=== PATIENT | male | born 1945 | race Caucasian/White ===

== ENCOUNTER 2019-04-17 22:00 | Emergency (ER) | payer MEDICARE ==
[~2019-04-17] VITALS: Ht 190.5 cm; Wt 90.9 kg
[~2019-04-17 22:00] MED LIST: AMBIEN10 MG PO; CLARITIN 10 MG10 MG PO; COLACE100 MG PO; FLUTICASONE PRO16 GM NASAL; GLUCOPHAGE500 MG PO; LISINOPRIL2.5 MG PO; NEURONTIN 300300 MG PO; OXYBUTYNIN CHLOR5 MG PO; PRAVACHOL40 MG PO; PRILOSEC20 MG PO; SINEMET 25-1001 EACH PO; ULTRAM50 MG PO
[2019-04-17 22:04] VITALS: Ht 190.5 cm; Wt 90.9 kg
[2019-04-17] MEDS ORDERED: AMANTADINE100 M1 PO (22:07)
[2019-04-17] MEDS ORDERED: CELEXA40 MG PO (22:07)
[2019-04-17] MEDS ORDERED: XALATAN 0.0052.5 ML EACH EYE (22:08)
[2019-04-17] MEDS ORDERED: NORITATE60 GM TP (22:08)
[2019-04-18 00:30] LABS: BASOPHILS 0.8 % (0-2); EOSINOPHILS 2.3 % (0-7); HEMATOCRIT 43.6 % (42.0-54.0); HEMOGLOBIN 15.3 g/dL (13.5-17.5); IMMATURE GRANULOCYTES 0.2 % (0-5); MCH 32.8 pg (26.0-34.0); MCHC 35.1 g/dL (31.0-37.0); MCV 93.4 fL (80.0-100.0); MEAN PLATELET VOLUME 9.6 fL (7.4-10.4); MONOCYTES 10.6 % (2-11); NEUTROPHILS 54.1 % (40-80); PLATELET COUNT 155 10x3/uL (130-400); RBC 4.67 10x6/uL (4.20-6.10); RDW 14.2 % (11.5-14.5); WBC 5.2 10x3/uL (4.8-10.8)
[2019-04-18 00:32] LABS: ALBUMIN 3.3 g/dL (3.4-5.0); ALKALINE PHOSPHATASE 70 U/L (46-116); ALT (SGPT) 4 U/L (10-68); BILIRUBIN - TOTAL 0.45 mg/dL (0.2-1.3); CALC OSMOLALITY 283 mosm/kg (275-300); CALCIUM 8.4 mg/dL (8.5-10.1); CARBON DIOXIDE 26.8 mmol/L (21.0-32.0); CHLORIDE - SERUM 106 mmol/L (98-107); CREATININE - SERUM 0.8 mg/dL (0.6-1.3); GLUCOSE 113 mg/dL (74-106); POTASSIUM - SERUM 3.9 mmol/L (3.5-5.1); PROTEIN - SERUM 6.8 g/dL (6.4-8.2); SODIUM 140 mmol/L (136-145); UREA NITROGEN 23 mg/dL (7-18); eGFR NON AFRICAN AMERICAN > 90 mL/min (90-120)
[2019-04-18] MEDS ORDERED: LOTREL 5/10 MG1 CAP PO ×2 (01:42→01:46)
[2019-04-18 02:15] VITALS: BP 119/82
== END 2019-04-18 02:15 | disposition home or self-care (01) ==
LOC: D.ER 22:00
PROVIDERS: Emergency Medicine
DX: I10 Essential (primary) hypertension (principal); G20 Parkinson's disease; E11.9 Type 2 diabetes mellitus without complications; I25.10 Atherosclerotic heart disease of native coronary artery without angina pectoris

== ENCOUNTER 2019-12-14 16:13 | Inpatient (IN) | payer MEDICARE ==
[~2019-12-14 16:13] MED LIST changes: +AMANTADINE100 M1 PO; +CELEXA40 MG PO; +LOTREL 5/10 MG1 CAP PO; +NORITATE60 GM TP; +SINEMET 25-1001 EAC1 PO; -SINEMET 25-1001 EACH PO; +XALATAN 0.0052.5 ML EACH EYE
[2019-12-14] MEDS ORDERED: LISINOPRIL20 MG (17:20)
[2019-12-14] MEDS ORDERED: RYTARY ER 48.71 EACH (17:27)
[2019-12-14] MEDS ORDERED: SENNA LAXATIVE8.6 MG (17:28)
[2019-12-14] MEDS ORDERED: SEROQUEL50 MG (17:28)
[2019-12-14] MEDS ORDERED: XARELTO10 MG (17:29)
[2019-12-14] MEDS ORDERED: MIRALAX17 GM (17:30)
[2019-12-14] MEDS ORDERED: IPRAT-ALBUT 0.5-3 ML (17:39)
--- NOTE | 2019-12-14 18:19 | NUR ---
PATIENT ADMITTED FROM [facility] FOR INCREASED CONFUSION, REFUSING MEDICATIONS, HALLUCINATIONS, AND AGRESSION WITH THE STAFF. CODE STATUS: FULL CODE. CODE WORD: 9874. IS IN AGREEMENT WITH ADMISSION. PT HAS ABNORMAL MOVEMENTS NOTED TO BILATERAL LEGS AND ARMS DUE TO PARKINSONS DISEASE. PT IS ALERT TO PLACE AND SELF. DISORIENTED TO TIME. BILATERAL SKIN TEARS NOTED TO ARMS AND LEGS. INCISION NOTED TO LEFT HIP WITH NO DRAINAGE AND PINK. PT DID NOT C/O OF PAIN. PT TRANSFERRED FROM W/C TO [facility] CHAIR 2X ASSIST. WEIGHT AND VITAL SIGNS OBTAINED. INFORMATION FROM FAMILY AND NURSING FACILITY VIA PHONE. CHAIR ALARM IN PLACE AND ACTIVE. ADMITTED TO ROOM 1123.
[2019-12-14 20:00] VITALS: BP 119/70
[2019-12-14] MEDS ORDERED: XALATAN 0.0052.5 ML EACH EYE (20:00)
[2019-12-14 23:18] LABS: BILIRUBIN NEGATIVE (NEGATIVE); GLUCOSE NEGATIVE (NEGATIVE); KETONE LARGE mg/dL (NEGATIVE); NITRITE NEGATIVE (NEGATIVE); SPECIFIC GRAVITY 1.015 (1.005-1.020); UROBILINOGEN 8 mg/dL (NORMAL)
[2019-12-14 23:58] VITALS: BP 119/70; BMI 23.8
[2019-12-15 06:09] LABS: ALBUMIN 2.6 g/dL (3.4-5.0); ALKALINE PHOSPHATASE 109 U/L (30-120); ALT (SGPT) 8 U/L (10-68); BILIRUBIN - TOTAL 0.98 mg/dL (0.2-1.3); CALC OSMOLALITY 288 mosm/kg (275-300); CALCIUM 8.6 mg/dL (8.5-10.1); CARBON DIOXIDE 26.2 mmol/L (21.0-32.0); CHLORIDE - SERUM 106 mmol/L (98-107); CHOL - HDL RATIO 2.2 ratio (2.3-4.9); CHOLESTEROL, TOTAL 71 mg/dL (0-200); CREATININE - SERUM 0.9 mg/dL (0.6-1.3); GLUCOSE 93 mg/dL (74-106); HDL CHOLESTEROL 32 mg/dL (32-96); LDL CHOLESTEROL 27 mg/dL (0-100); LDL-HDL RATIO 0.8 ratio (1.5-3.5); POTASSIUM - SERUM 4.2 mmol/L (3.5-5.1); PROTEIN - SERUM 6.5 g/dL (6.4-8.2); SODIUM 142 mmol/L (136-145); THYROID STIMULATING HORMONE 2.68 uIU/mL (0.36-3.74); TRIGLYCERIDE 64 mg/dL (30-200); UREA NITROGEN 28 mg/dL (7-18); eGFR NON AFRICAN AMERICAN 88 mL/min (90-120)
--- NOTE | 2019-12-15 08:26 | NUR ---
PATIENT SITTING IN [facility] CHAIR AWAITING BREAKFAST AT THIS TIME. PT IS ALERT TO SELF AND CONFUSION NOTED. PREVIOUS SHIFT REPORTED BEHAVIORS YELLING OUR FOR DANYEL. PT IS CALM AT THIS TIME. COMPLIANT WITH ASSESSMENT AND VITAL SIGNS. CHAIR ALARM IN PLACE AND ACTIVE. WILL CONT PLAN OF CARE.
[2019-12-15 08:38] VITALS: Wt 80.5 kg
[2019-12-15 09:45] LABS: BASOPHILS 0.2 % (0-2); HEMATOCRIT 40.5 % (42.0-54.0); HEMOGLOBIN 13.1 g/dL (13.5-17.5); IMMATURE GRANULOCYTES 0.6 % (0-5); LYMPHOCYTES 19.2 % (15-50); MCH 31.6 pg (26.0-34.0); MCHC 32.3 g/dL (31.0-37.0); MCV 97.6 fL (80.0-100.0); MEAN PLATELET VOLUME 9.4 fL (7.4-10.4); MONOCYTES 12.2 % (2-11); NEUTROPHILS 66.8 % (40-80); PLATELET COUNT 456 10x3/uL (130-400); RBC 4.15 10x6/uL (4.20-6.10); RDW 14.2 % (11.5-14.5); WBC 5.2 10x3/uL (4.8-10.8)
[2019-12-15 10:46] VITALS: BP 144/75
--- NOTE | 2019-12-15 16:28 | NUR ---
patient c/o of pain all over. Tramadol 50 mg po administered per order. will reasses for effectiveness.
--- NOTE | 2019-12-15 20:46 | NUR ---
PATIENT WAS OBSERVED IN DAYROOM, SITTING CALMLY HOWEVER PATIENT IS CONFUSED. COMPLIANT WITH MEDS, PT. IS PLEASANT. WILL FOLLOW POC
[2019-12-15 20:48] VITALS: BP 105/56
--- NOTE | 2019-12-16 09:03 | NUR ---
RECEIVED IN HALLWAY OUTSIDE OF NURSES STATION. CALM AND COOPERATIVE WITH CARE AND ASSESSMENT. NO BEHAVIORS. TAKING MEDS. REDIRECT AND REORIENT NEEDED. EATING BREAKFAST AT THIS TIME. CONTINUE PLANF OF CARE.
[2019-12-16 10:30] VITALS: BP 140/70
--- NOTE | 2019-12-16 14:15 | NUR ---
PRN EFFECTIVE AT THIS TIME. WILL CONT TO MONITOR. CHAIR ALARM IN PLACE AND ACTIVE.
--- NOTE | 2019-12-16 15:15 | NUR ---
PT YELLING OUT, ATTEMPTING TO PULL THE CABINET OVER, THREATING STAFF AND ACCUSING PEERS. GEODON [address] ZULUAGA ORDER. WILL REASSES FOR EFFECTIVENESS Q 1 HOUR.
--- NOTE | 2019-12-16 16:40 | PSY ---
PATIENT NAME:RIMA LANIER MEDICAL RECORD: [id number] : 47 LOCATION:[facility] ADMISSION DATE: 12/14/19 ACCOUNT: [id number] PSYCHIATRIC EVALUATION DATE OF EVALUATION: 12/15/19 DATE OF SERVICE: 12/15/2019 IDENTIFYING DATA: The patient is a 74-year-old male that was referred to us by a retirement Facility in [place], [place], after the patient had hip surgery for rehabilitation. CHIEF COMPLAINT: Hallucinating, yelling at staff and refusing medication. HISTORY OF PRESENT ILLNESS: The patient was reportedly to have an increase in hallucinating, agitation, irritability and noncompliance with care. The patient was reported to have had hip surgery on 12/03/2019 following the hip surgery. He then went to the retirement facility for physical therapy. The patient has a history of Parkinson's. The patient lived at home prior to his fall. It was reported that patient was hollering from his room and appeared to be hallucinating. The patient was transferred by ambulance as a direct admission to [facility]. PAST MEDICAL HISTORY: The patient has a history of type 2 diabetes, diverticulosis, hypertension, hyperlipidemia, Parkinson's disease. PAST PSYCHIATRIC HISTORY: The patient states he has had some depression. FAMILY HISTORY: The patient is a poor historian, unknown. ALLERGIES: HYDROCODONE. CURRENT MEDICATIONS: The patient was on Lorazepam 0.5 mg one tab every 12 hours, he was up draft inhaler 6 hours times 7 days, he was on Rytary extended release 48.75 mg and 195 mg capsules get 3 caps every 8 hours, Seroquel 50 mg, Tramadol 50 mg one tab p.o. every 6 hours p.r.n., Senna Plus one tablet p.o. b.i.d., Xarelto 10 mg tablets one tablet p.o. every night, Pravastatin 40 mg one tab every bedtime, MiraLax 17 grams one capsule every day, Nuplazid 34 mg capsules one tablet every day, oxybutynin 5 mg one tab p.o. 3 times a day, lisinopril 20 mg tablet one tab p.o. every day, latanoprost 0.005% eyedrops one drop to each eye every bedtime, citalopram 40 mg tablet one tab p.o. daily, fluticasone prop 15 mcg spray 2 sprays to each naris every day, Sinemet 25/100 tabs give 2-1/2 tabs p.o. 4 times daily, amantadine 100 mg one capsule p.o. every day. SOCIAL HISTORY: The patient states he is . He has 3 children. He is retired from auto body repair. He was residing at home until his fall and plans to return home. MENTAL STATUS EXAM: The patient's general appearance is appropriate for his current stay. His orientation is alert to person, disoriented to place, time and situation. His speech was soft, low tone, low volume. His associations were loose. Good eye contact. Judgment and insight is impaired. Impulsivity is high. Thought and concentration, he is distracted. His mood is depressed and anxious. Affect is flat, narrow in range. No abnormal movements were noted at present. Anxiety was [id number]. Memory is poor for remote and recent events. The patient does not appear to be attending to visual, auditory hallucinations. ASSESSMENT: Parkinson, psychosis, dementia, insomnia, generalized anxiety disorder. PLAN: At this time, the patient is to be admitted to the hospital for comprehensive medical, psychological, and social evaluation. We will continue with physical therapy. His medications will be monitored and adjusted to stabilize his mood and thought disorder. His custodial prognosis is guarded. Dictated By: Paris Kearns APN I have interviewed/examined the above patient and agree with these documented findings. TRANSINT:[id number] Voice Confirmation ID: [id number] DOCUMENT ID: [id number] Dictated By: PARIS KEARNS I have interviewed/examined the above patient and agree with these documented findings. SANTOS ZULUAGA MD at 1443 at 1640 CC: [id number] DICTATION DATE: 12/15/19 1233 TAIL SAWYER: 12/15/19 1351 ADM IN [place] [address] [place] [address]
[2019-12-16 20:00] VITALS: BP 154/72
--- NOTE | 2019-12-17 01:22 | NUR ---
B) Patient is alert and oriented to self, confused at times, sitting watching TV I) ADMINISTERED SCHEDULED medications as ordered, monitored for safety, assisted with needs R) Medication compliant, resting quietly P) Continue plan of care.
--- NOTE | 2019-12-17 09:00 | NUR ---
RECEIVED IN HALLWAY OUTSIDE OF NURSES STATION. CALM AND COOPERATIVE WITH CARE AND ASSESSMENT. NO AGGRESSIVE BEHAVIOR. REDIRECT AND REORIENT NEEDED. EATING BREAKFAST AT THIS TIME. CONTINUE PLAN OF CARE.
[2019-12-17 09:13] VITALS: BP 176/85
--- NOTE | 2019-12-17 14:43 | PN ---
PATIENT:RIMA LANIER MEDICAL RECORD: [id number] LOCATION:[facility] ADMISSION DATE: 12/14/19 PROGRESS NOTE DATE OF SERVICE: 12/16/2019 SUBJECTIVE: The patient is sitting in wheelchair. The patient states that he did ambulate or did walk. He is conversive and pleasant. Denying any pain. OBJECTIVE: The patient's general appearance is appropriate for environment. He is alert to person, disoriented to place, time, and situation. His speech is soft, low tone, low volume. His associations are loose. His eye contact is good. His judgment and insight is impaired. Impulsivity is high. His thought and concentration is distracted. His mood is depressed and anxious. His affect is restricted. No tremors were noted to hands bilaterally. His anxiety is mild. Memory is poor for both recent and remote events. The patient does not appear to be attending any visual or auditory hallucinations. ASSESSMENT: Dementia and Parkinson's psychosis. PLAN: Treatment plan was reviewed. We will continue to taper the Sinemet and we will monitor his abnormal movement, his mood stability and his psychosis and will rules keep him safe from harm and prepare for discharge. Dictated By: Paris Kearns APN I have interviewed/examined the above patient and agree with these documented findings. TRANSINT:[id number] Voice Confirmation ID: [id number] DOCUMENT ID: [id number] SANTOS ZULUAGA MD at 1443 at 1222 CC: [id number] DICTATION DATE: 12/16/19 1413 SERVICENOW ADMINISTRATOR DEVELOPER: 12/16/19 2101 ADM IN [facility] [address] [place] [address]
--- NOTE | 2019-12-17 22:10 | NUR ---
B.) PT IS ALERT AND ORIENTED TO SELF ONLY. HE HAS POOR INSIGHT INTO HIS SITUATION. HE IS CALM AND COOPERATIVE WITH STAFF. HE IS RECEIVED IN THE DAYROOM IN A GERICHAIR. HE IS PLEASANT WITH PEERS. I.) PROVIDED PM MEDICATIONS PRESCRIBED. REDIRECT NEEDED. R.) COMPLIANT WITH ALL MEDICATIONS. EASY TO REDIRECT. P.) WILL CONTINUE TO MONITOR.
[2019-12-18 06:43] VITALS: BP 126/75
--- NOTE | 2019-12-18 08:45 | NUR ---
RECEIVED IN HALLWAY OUTSIDE OF NURSES STATION. CALM AND COOPERATIVE WITH CARE AND ASSESSMENT. VERY CONFUSED. HAVING VISUAL HALLUCINATIONS. REDIRECT AND REORIENT NEEDED. EATING BREAKFAST AT THIS TIME. CONTINUE PLAN OF CARE.
[2019-12-18 10:10] VITALS: BP 144/75
--- NOTE | 2019-12-18 14:43 | PN ---
PATIENT:RIMA LANIER MEDICAL RECORD: [id number] [facility] ADMISSION DATE: 12/14/19 PROGRESS NOTE DATE OF SERVICE: 12/17/2019 SUBJECTIVE: The patient's case was discussed with staff. He has no new complaint. OBJECTIVE: The patient is somewhat angry. Apparently, he threw a wheelchair earlier and was yanking on the door and screaming. He has no recollection of this. ASSESSMENT: Dementia, Parkinson-related dementia. PLAN: The patient will be given a scheduled dose of Geodon. Geodon is being used to treat his behavior problems. He will be monitored for clinical changes associated with its use. TRANSINT:[id number] Voice Confirmation ID: [id number] DOCUMENT ID: [id number] SANTOS ZULUAGA MD at 1443 CC: [id number] DICTATION DATE: 12/17/19 1616 PAINTER BARREL: 12/17/19 1908 ADM IN [facility] [address] [place] [address]
[2019-12-18 20:26] VITALS: BP 125/70
--- NOTE | 2019-12-18 22:06 | NUR ---
B.) PT IS SLEEPY TONIGHT. HE IS PLEASANT WITH STAFF BUT WITHDRAWN. HE IS RECEIVED IN THE DAYROOM IN A GERICHAIR. I.) PROVIDED PM MEDICATIONS PRESCRIBED. REDIRECT NEEDED. R.) COMPLIANT WITH ALL MEDICATIONS. EASY TO REDIRECT. P.) WILL CONTINUE TO MONITOR.
[2019-12-19 09:31] VITALS: BP 156/85
--- NOTE | 2019-12-19 14:06 | PN ---
PATIENT:RIMA LANIER MEDICAL RECORD: [id number] LOCATION:[facility] ADMISSION DATE: 12/14/19 PROGRESS NOTE DATE OF SERVICE: 12/18/2019 SUBJECTIVE: The patient's case was discussed with staff. He has no new complaint. OBJECTIVE: The patient is somewhat better today. He is not oriented, but his mood is better. He slept well last night. Unfortunately, he is still not eating very well. ASSESSMENT: Dementia. PLAN: Current medicines have been reviewed and will be maintained. Long-term prognosis is guarded. TRANSINT:[id number] Voice Confirmation ID: [id number] DOCUMENT ID: [id number] SANTOS ZULUAGA MD at 1406 CC: [id number] DICTATION DATE: 12/18/19 1502 BILLET HEATER: 12/18/19 1515 ADM IN [place] [id number] [place] [address]
--- NOTE | 2019-12-19 16:10 | NUR ---
PATIENT SITTING IN CHAIR WITH EYES OPEN WITH A DISTANT STARE. NO DISTRESS NOTED. PT IS CONFUSED AND ORIENTED TO SELF ONLY. PT CAN MAKE SOME NEEDS KNOWN AND ASSIST 1X WITH ADLS. COMPLIANT WITH VITALS, MEDS AND ASSESSMENTS. NO BEHAVIORS NOTED. WILL CONT PLAN OF CARE. CHAIR ALARM IN PLACE AND ACTIVE.
--- NOTE | 2019-12-19 19:39 | NUR ---
B)PT SITTING IN CHAIR IN HALLWAY AT NURSES STATION. WANTING TO MAKE A TELEPHONE CALL. EXPLAINED TO PATIENT THE TIMES FOR USING THE TELEPHONE. PATIENT BECAME AGITATED AND AGGRESSIVE. CURSING AND TRYING TO HIT STAFF. UNCOOPERATIVE WITH VERBAL REDIRECTION. CONFUSED AND DISORIENTED. I)ADMINISTER MEDS AND MONITOR COMPLIANCE. REORIENT NEEDED. R)MED COMPLIANT. POOR REORIENTATION. PATIENT REMAINS ANGRY AND DISRUPTING UNIT MILEU. PRN GEODON IM ADMINISTERED PER ORDERS. P)CONTINUE POC AND PROVIDE SAFE ENVIRONMENT.
[2019-12-19 21:40] VITALS: BP 161/87
[2019-12-20 08:00] VITALS: BP 166/93
--- NOTE | 2019-12-20 08:49 | NUR ---
The patient is awake and he is pleasant this am he has not shown any aggression this am, he is confused as he does not know where he is and he has poor insight into his situation. He is in a recliner and he is calm at this time. Provide prescribed meds. Redirect to appropriate beavior as needed. Continue POC.
--- NOTE | 2019-12-20 09:57 | NUR ---
Team Treatment Review Diet: Diabetic Low Fat/Low Cholesterol Diet PO intake: 29% avg x 9 meals Pt refuses snacks Pt can feed self BM: No recent BM Admit Wt: 190.2 lbsWt on 12/15: 190.2 lbs Significant Meds: Levodopa, Senokot, Pravastatin Significant Labs (Recorded on 12/14): BUN- 28(H) Encourage PO intake Try Glucerna with meals for extra nutrients Will continue to monitor closely. Will monitor po intake, diet changes, nutrition-related labs/meds, wt changes, BM frequency, and skin integrity. Clinical Dietitian following
--- NOTE | 2019-12-20 16:18 | PN ---
PATIENT:RIMA LANIER MEDICAL RECORD: [id number] LOCATION:[facility] ADMISSION DATE: 12/14/19 PROGRESS NOTE DATE OF SERVICE: 12/19/2019 SUBJECTIVE: The patient's case was discussed with staff. He has no new complaint. OBJECTIVE: The patient denies intent to harm himself or others. He is only partially oriented. He is not eating adequately. He has pretty limited insight about his situation. ASSESSMENT: Dementia. PLAN: The patient's current medicines have been reviewed. I am going to reduce the dose of Sinemet slightly. He will be monitored for clinical changes. TRANSINT:[id number] Voice Confirmation ID: [id number] DOCUMENT ID: [id number] SANTOS ZULUAGA MD at 1618 CC: [id number] DICTATION DATE: 12/19/[address]ER: 12/19/19 1624 ADM IN [facility] [address] [place] [address]
--- NOTE | 2019-12-20 18:51 | NUR ---
PT FAMILY CALLED AND TOLD HIM THEY WERE TAKING HIM TO THE HOSPITAL. PT IS UPSET, CRYING AND WANTING TO LEAVE. HE STATES HE REMEMBER THE LAST TIME THAT HE WENT TO THE HOSPITAL AND THEY TOOK 7 PINTS OF BLOOD. THAT SOUNDS LIKE ALOT TO ME. PLEASE LET ME LEAVE. ALCIDES!! OH PLEASE" ATIVAN 0.5 MG PO GIVEN FOR ANXIETY. WILL REASSESS FOR EFFECTIVENESS.
[2019-12-20 20:46] VITALS: BP 162/84
--- NOTE | 2019-12-20 21:43 | NUR ---
RECEIVED PATIENT IN DAYROOM[facility] RECEIVED IN REPORT THAT HE WAS VERY UPSET, HOWEVER HE IS PLEASANT AND TALKATIVE, COMPLIANT WITH MEDS, NO ADVERSE REACTION NOTED, HE IS COMPLIANT WITH UNIT RULES, CAN MAKE NEEDS KNOWN. WILL FOLLOW POC
[2019-12-21 10:41] VITALS: BP 147/74
--- NOTE | 2019-12-21 11:04 | NUR ---
The patient is awake and he is not aggressive and he is not yelling. He is pleasant. He is oriented to self only at this time. He has poor insight into his situation. Provide prescribed meds. The patient is compliant with meds. Continue POC.
--- NOTE | 2019-12-21 18:40 | NUR ---
PATIENT REPOSITIONED MULTIPLE TIMES DURING SHIFT DUE TO RESTLESS LEGS DUE TO PARKINSONS DISORDER.
--- NOTE | 2019-12-21 18:44 | NUR ---
SPOKE WITH FAMILY TO ABOUT A PHONE CALL FROM PREVIOUS DAY ABOUT PT SON BEING IN THE HOSPITAL. PASSCODE GIVEN. PT SON INDEED WENT TO THE ER AND WAS ADMITTED TO HOSPITAL. PT HAS NOT ASKED ABOUT SON THIS SHIFT. SON IS DOING BETTER AND WILL BE RELEASED FROM HOSPITAL SOON.
[2019-12-21 20:00] VITALS: BP 146/84
--- NOTE | 2019-12-22 02:24 | NUR ---
B) Patient is alert and oriented to person and place, then became more confused later in the evening and only oriented to self, I) Administered scheduled medications as ordered, PRN Tramadol 50 mg for leg pain at 02:14 R) Mediation compliant, worried about his car being impounded, P) Continue plan of care.
--- NOTE | 2019-12-22 11:00 | NUR ---
The patient is sleepy this am, he is not acting like he usually does and he has been seen lifting up his arms and acting like he is reaching for something. He is able to walk a little with assistance, he uses a walker. He is pleasant. Provide prescribed medications. The patient is compliant with medications. Continue POC.
[2019-12-22 11:10] VITALS: BP 117/76
--- NOTE | 2019-12-22 14:34 | PN ---
PATIENT:RIMA LANIER MEDICAL RECORD: [id number] LOCATION:[facility] ADMISSION DATE: 12/14/19 PROGRESS NOTE DATE OF SERVICE: 12/21/2019 DATE OF SERVICE: 12/21/2019 SUBJECTIVE: The patient's case was discussed with staff. Staff reports that he does still appear attending to some hallucinations. The patient is sitting in chair and denies any pain. OBJECTIVE: The patient's general appearance, he is mildly disheveled. His orientation, he is alert to person, disoriented to time and situation. His speech is soft, low tone, low volume. His eye contact is fair. His judgment and insight is impaired. His thought appears to have a poverty of thought with loose associations. His mood is depressed, mildly anxious, easily agitated. His affect is flat, narrow in range, abnormal movements. No tremors were noted of his hands bilaterally. His memory is poor for both recent and remote events. The patient at this time does not appear to be attending to any auditory or visual hallucinations. ASSESSMENT: No change in diagnosis. PLAN: Modify his dose of Geodon since he was tolerating the lower dose, but still having some behaviors. We will continue to monitor for any psychosis, strive to improve his mood, decrease his agitation and prepare him for return to his prior living situation. Dictated By: Paris Kearns APN I have interviewed/examined the above patient and agree with these documented findings. TRANSINT:[id number] Voice Confirmation ID: [id number] DOCUMENT ID: [id number] SANTOS ZULUAGA MD at 1454 at 1434 CC: [id number] DICTATION DATE: 12/21/19 1225 HOG HANDLER: 12/21/19 1721 ADM IN [facility] [address] [place] [address]
[2019-12-22 20:00] VITALS: BP 158/76
--- NOTE | 2019-12-22 21:37 | NUR ---
B.) PT IS ALERT AND ORIENTED TO SELF ONLY. HE HAS POOR INSIGHT INTO HIS SIUTATION. HE STATES "IM WAITING AT THE FACTORY FOR JANETH." HE IS AGGITATED AT TIMES. I.) PROVIDED PM MEDICATIONS PRESCRIBED. REDIRECT OFTEN. R.) COMPLIANT WITH ALL MEDICATIONS. DIFFICULT TO REDIRECT AT TIMES. P.) CONTINUE TO MONITOR.
[2019-12-23 11:05] VITALS: BP 154/85
--- NOTE | 2019-12-23 13:56 | PN ---
PATIENT:RIMA LANIER MEDICAL RECORD: [id number] LOCATION:[facility] ADMISSION DATE: 12/14/19 PROGRESS NOTE DATE OF SERVICE: 12/22/2019 DATE OF SERVICE: 12/22/2019 SUBJECTIVE: The patient's case was discussed with staff. Staff reports that he still does continue to be attending to hallucinations, can be redirected. The patient is sitting in a chair, conversive pleasantly. Denies any pain. OBJECTIVE: The patient's general appearance is mildly disheveled, appropriate for environment. His orientation is alert to person, disoriented to time and situation. His speech is soft, low tone, low volume. His eye contact is fair. His judgment and insight is impaired. Thought; he does appear to have poverty of thought with loose associations. His mood is depressed, mildly anxious. His affect is flat, narrow in range. Abnormal movements. No tremors were noted of his hands bilaterally. The patient at this time does not appear to be attending to any auditory or visual hallucinations. ASSESSMENT: No change in diagnosis. PLAN: We will continue monitor him for his tolerance to the Geodon and for his hallucinations we did decrease his carbidopa/levodopa by 1 mg in the afternoon dose. We will continue to strive to improve his mood, decrease his agitation and prepare him for return to his prior living situation. Dictated By: Paris Kearns APN I have interviewed/examined the above patient and agree with these documented findings. TRANSINT:[id number] Voice Confirmation ID: [id number] DOCUMENT ID: [id number] SANTOS ZULUAGA MD at 1454 at 1356 CC: [id number] DICTATION DATE: 12/22/19 1347 STATE FARM AGENT TEAM MEMBER: 12/22/19 1528 ADM IN [facility] [address] [place] [address]
--- NOTE | 2019-12-23 15:29 | NUR ---
ALERT, CALM, CONFUSED, COOPERATIVE. MEDS ADMIN PER ORDERS WITH COMPLETE MED COMPLIANCE NOTED. NO ADVERSE BEHAVIORS NOTED. CONT PLAN OF CARE.
--- NOTE | 2019-12-23 18:59 | NUR ---
FAMILY CALLED AND SPOKE TO PATIENT DURING CALL TIME.
[2019-12-23 20:00] VITALS: BP 153/83
--- NOTE | 2019-12-23 20:47 | NUR ---
B.) PT IS ALERT AND ORIENTED TO SELF ONLY. HE IS RECEIVED IN THE DAYROOM IN HIS GERICHAIR. HE IS CALM AND COOPERATIVE WITH STAFF. HE IS ABLE TO MAKE HIS NEEDS KNOWN. I.) PROVIDED PM MEDICATIONS PRESCRIBED. REDIRECT NEEDED. R.) COMPLIANT WITH ALL MEDICATIONS. EASY TO REDIRECT. P.) WILL CONTINUE TO MONITOR.
--- NOTE | 2019-12-24 01:14 | NUR ---
PT IS ANXIOUS AND PARANOID. HE THREATENED THE STAFF. REDIRECT SUCESSFUL. WILL CONTINUE TO MONITOR
[2019-12-24 08:42] VITALS: BP 131/73
--- NOTE | 2019-12-24 14:54 | PN ---
PATIENT:RIMA LANIER MEDICAL RECORD: [id number] LOCATION:[facility] ADMISSION DATE: 12/14/19 PROGRESS NOTE DATE OF SERVICE: 12/20/2019 SUBJECTIVE: The patient's case was discussed with staff. He has no new complaint. OBJECTIVE: The patient is taking a scheduled dose of Geodon with limited effect on his behaviors. It has not worsened his movement disorder and I have also decreased his scheduled dose of Sinemet and that has not worsened his movement disorder. IMPRESSION: Parkinson's related dementia. PLAN: Current medicines have been reviewed and will be maintained. Long-term prognosis is guarded. TRANSINT:[id number] Voice Confirmation ID: [id number] DOCUMENT ID: [id number] SANTOS ZULUAGA MD at 1454 CC: [id number] DICTATION DATE: 12/20/19 1623 SACK MAKER: 12/20/19 1817 ADM IN [facility] [address] [place] [address]
--- NOTE | 2019-12-24 14:54 | PN ---
PATIENT:RIMA LANIER MEDICAL RECORD: [id number] LOCATION:[facility] ADMISSION DATE: 12/14/19 PROGRESS NOTE DATE OF SERVICE: 12/23/2019 SUBJECTIVE: The patient's case was discussed with staff. Staff reports that he appears to have a decrease in attending to hallucinations. The patient can be easily redirected. The patient is sitting in a chair and conversive pleasantly. The patient denies any pain. OBJECTIVE: The patient's general appearance is mildly disheveled, appropriate for environment. His orientation is alert to person, disoriented to time and situation. His speech is soft, low tone, low volume. His eye contact is good. His judgment and insight are impaired. He does have poverty of thought with loose associations. His mood is depressed, mildly anxious. His affect is flat, narrow in range. Abnormal movements. No tremors were noted of his hands bilaterally. The patient at this time does not appear to be attending to any auditory or visual hallucinations. ASSESSMENT: No change in diagnosis. PLAN: We will continue to monitor him for his tolerance to his medications to decrease his hallucinations, stabilize his mood and prepare him for return to his previous living situation, stabilize his thought. Dictated By: Paris Kearns APN I have interviewed/examined the above patient and agree with these documented findings. TRANSINT:[id number] Voice Confirmation ID: [id number] DOCUMENT ID: [id number] SANTOS ZULUAGA MD at 1454 at 1402 CC: [id number] DICTATION DATE: 12/23/19 1356 CONTENT COORDINATOR: 12/23/19 1616 ADM IN [facility] [address] [place] [id number]
--- NOTE | 2019-12-24 19:44 | NUR ---
RECEIVED IN DAYROOM. SITTING IN A CHAIR WITH PEERS AT HIS SIDE. CALM AND COOPERATIVE WITH CARE AND ASSESSMENT. NO SIGNS OF HALLUCINATIONS. REDIRECT AND REORIENT NEEDED. CONTINUES TO REST CALMLY. CONTINUE PLAN OF CARE
[2019-12-24 19:58] VITALS: BP 150/68
--- NOTE | 2019-12-25 08:30 | NUR ---
RECEIVED IN HALLWAY OUTSIDE OF NURSES STATION. CALM AND COOPERATIVE WITH CARE AND ASSESSMENT. SOCIALIZING WITH STAFF. NO AGGRESSIVE BEHAVIOR. REDIRECT AND REORIENT NEEDED. EATING BREAKFAST AT THIS TIME. CONTINUE PLAN OF CARE.
[2019-12-25 08:43] VITALS: BP 130/84
--- NOTE | 2019-12-25 13:01 | PN ---
PATIENT:RIMA LANIER MEDICAL RECORD: [id number] LOCATION:[facility] ADMISSION DATE: 12/14/19 PROGRESS NOTE DATE OF SERVICE: 12/24/2019 SUBJECTIVE: The patient's case was discussed with staff. He has no new complaint. OBJECTIVE: The patient is not eating adequately, nor is he sleeping adequately. ASSESSMENT: Dementia. PLAN: The patient's Sinemet is going to be reduced further. He is still not showing any evidence of side effect or movement disorder. In addition to this, I am going to give him trazodone to assist with sleep consolidation. TRANSINT:[id number] Voice Confirmation ID: [id number] DOCUMENT ID: [id number] SANTOS ZULUAGA MD at 1301 CC: [id number] DICTATION DATE: 12/24/19 1603 COMMERCIAL MANAGER: 12/24/19 1712 ADM IN [facility] [address] [place] [address]
--- NOTE | 2019-12-25 13:05 | NUR ---
PT C/O OF PAIN TO SPINE. NURSE AND AID ASSISTED INTO STANDING POSITION. TRAMADOL 50 MG PO GIVEN PER PRN ORDER. WILL REASSESS FOR EFFECTIVENESS.
[2019-12-25 20:00] VITALS: BP 130/74
--- NOTE | 2019-12-25 20:20 | NUR ---
RECEIVED IN DAYROOM. SITTING IN A RECLINER WITH PEERS AT HIS SIDE. CALM AND COOPERATIVE WITH CARE AND ASSESSMENT. NO SIGNS OF HALLUCINATIONS. REDIRECT AND REORIENT NEEDED. RESTING IN BED WITH EYES CLOSED AT THIS TIME. CONTINUE PLAN OF CARE
--- NOTE | 2019-12-26 09:15 | NUR ---
RECEIVED IN HALLWAY OUTSIDE OF NURSES STATION. CALM AND COOPERATIVE WITH CARE AND ASSESSMENT. SOCIALIZING WITH STAFF AND OTHER PATIENTS. NO AGGRESSIVE BEHAVIOR. REDIRECT AND REORIENT NEEDED. EATING BREAKFAST AT THIS TIME. CONTINUE PLAN OF CARE.
[2019-12-26 10:47] VITALS: BP 109/70
--- NOTE | 2019-12-26 10:50 | PN ---
PATIENT:RIMA LANIER MEDICAL RECORD: [id number] LOCATION:[facility] ADMISSION DATE: 12/14/19 PROGRESS NOTE DATE OF SERVICE: 12/25/2019 SUBJECTIVE: The patient's case was discussed with staff. He has no new complaint. OBJECTIVE: The patient is in good behavioral control. He has limited insight about his situation. ASSESSMENT: Dementia. PLAN: The patient will be maintained on current medicines, which have been reviewed. I am going to give him Megace to assist with appetite stimulation. TRANSINT:[id number] Voice Confirmation ID: [id number] DOCUMENT ID: [id number] SANTOS ZULUAGA MD at 1050 CC: [id number] DICTATION DATE: 12/25/19 1328 MONOTYPE OPERATOR: 12/25/19 1739 ADM IN [facility] [address] [place] [address]
--- NOTE | 2019-12-26 21:46 | NUR ---
B.) PT IS ALERT AND ORIENTED TO SELF ONLY. HE HAS POOR INSIGHT INTO HIS SITUATION. HE IS RECEIVED IN THE DAYROOM. HE IS WITHDRAWN WITH A FLAT AFFECT. HE IS CALM AND COOPERATIVE WITH STAFF. I.) PROVIDED PM MEDICATIONS PRESCRIBED. REDIRECT OFTEN. R.) COMPLIANT WITH ALL MEDICATIONS. DIFFICULT TO REDIRECT AT TIMES. P.) WILL CONTINUE TO MONITOR.
[2019-12-26 23:41] VITALS: BP 108/90
--- NOTE | 2019-12-27 11:56 | NUR ---
PT SITTING IN CHAIR WITH EYES CLOSED. NO ACUTE DISTRESS NOTED. PT IS ALERT AND CONFUSED ORIENTED TO SELF ONLY. PT IS CALM AND COOPERATIVE WITH STAFF. PT CAN MAKE NEEDS KNOWN. PHYSICAL THERAPY CAME TO WALK WITH PT AND HE DID NOT DO WELL. THIS A.M. HE REQUIRED 2X ASSIST WITH TRANFSER AND AMBULATION. NURSE ASSISTED PT INTO ANOTHER CHAIR AND INTO A RECLINER CHAIR. PT STATED "HE HAD PIN AND NEEDLES IN HIS LEGS." CHAIR ALARM IN PLACE AND ACTIVE. WILL CONT PLAN OF CARE.
--- NOTE | 2019-12-27 12:26 | PN ---
PATIENT:RIMA LANIER MEDICAL RECORD: [id number] LOCATION:[facility] ADMISSION DATE: 12/14/19 PROGRESS NOTE DATE OF SERVICE: 12/26/2019 SUBJECTIVE: The patient's case was discussed with staff. He has no new complaint. OBJECTIVE: The patient is eating a little better. He did sleep reasonably well last night. There is no movement or tremor that is observable and this is something of a mystery since he is supposed to have Parkinson's disease. ASSESSMENT: Dementia. PLAN: The patient is going to have his trazodone discontinued since he is sleeping adequately with current scheduled medicines he is receiving. His long-term prognosis is guarded. TRANSINT:[id number] Voice Confirmation ID: [id number] DOCUMENT ID: [id number] SANTOS ZULUAGA MD at 1226 CC: [id number] DICTATION DATE: 12/26/19 1639 SECONDARY SPANISH TEACHER: 12/26/19 1809 ADM IN [place] [id number] [place] [address]
--- NOTE | 2019-12-27 12:51 | NUR ---
PT DID NOT LIKE HIS LUNCH SO WE ORDERED HIM ANOTHER SANDWICH.
[2019-12-27 13:18] VITALS: BP 155/89
--- NOTE | 2019-12-27 14:01 | NUR ---
Nutrition Follow-up: Noted Lolis started 12/25. Diet: Diabetic, Low Fat, Low Chol, Glucerna BID PO intake: 49% avg x 9 meals Wt: 190# (12/22); 190# (admit) Last BM: 12/23 Meds noted: Ale Danielle -Encourage PO intake and honor food preferences within diet restrictions. -Monitor wt. -RD following.
[2019-12-27 20:00] VITALS: BP 100/55
--- NOTE | 2019-12-27 21:01 | NUR ---
B.) PT IS ALERT AND ORIENTED TO SELF ONLY. HE HAS POOR INSIGHT INTO HIS SITUATION. HE IS RECEIVED IN THE DAYROOM IN A GERICHAIR. HE IS CALMAND COOPERATIVE WITH. HE IS WITHDRAWN AND HAS A FLAT AFFECT. I.) PROVIDED PM MEDICATIONS PRESCRIBED. REDIRECT OFTEN. R.) COMPLIANT WITH ALL MEDICATIONS. EASY TO REDIRECT. P.) WILL CONTINUE TO MONITOR.
--- NOTE | 2019-12-28 00:47 | NUR ---
PT IS ROAMING IN AND OUT OF HER ROOM. STILL COMBATIVE. WILL CONTINUE TO MONITOR
[2019-12-28 09:38] VITALS: BP 140/72
--- NOTE | 2019-12-28 12:12 | NUR ---
ALERT, CALM, COOPERATIVE WITH STAFF, NO ADVERSE BEHAVIORS NOTED. MEDS ADMIN PER ORDERS WITH COMPLETE MED COMPLIANCE NOTED. NO HALLUCINATIONS NOTED. COOPERATIVE WITH STAFF. CONT. POC DIRECTED.
[2019-12-28 20:00] VITALS: BP 124/69
--- NOTE | 2019-12-28 22:33 | NUR ---
B)RECEIVED PATIENT SITTING IN A CHIAR IN THE DAYROOM. BLANK STARE OR WILL SIT WITH EYES CLOSED. CONFUSED AND DISORIENTED. DELUSIONAL RELATING " MY SAID IF YOU NEED ANY HELP JUST LET HER KNOW." PATIENT ASKED FOR MAGALY CRACKERS AND THEN JUST LET THEM LAY IN HIS LAP. RELATES HE IS IN THE MIDDLE OF [facility]. I)ADMINISTER MEDS AND MONITOR COMPLIANCE. REORIENT NEEDED. R) MED COMPLIANT. POOR REORIENTATION DUE TO IMPAIRED ABILITY TO COMPREHEND, PROCESS AND RETAIN INFORMATION. P)CONTINUE POC AND PROVIDE SAFE ENVIRONMENT.
[2019-12-29 09:20] VITALS: BP 121/68
--- NOTE | 2019-12-29 09:32 | NUR ---
The patient is awake and he is pleasant when spoken to, but he stares out into the room, unsure if he is seeing things. He is unsteady when he stands and transfers. Provide prescribed meds. The patient is compliant with meds. He has not shown any aggression today. Continue POC.
--- NOTE | 2019-12-29 15:29 | PN ---
PATIENT:RIMA LANIER MEDICAL RECORD: [id number] LOCATION:[facility] ADMISSION DATE: 12/14/19 PROGRESS NOTE DATE OF SERVICE: 12/28/2019 SUBJECTIVE: The patient's case was discussed with staff. The patient states that he slept well last night, woke up feeling okay. States his appetite was good this morning. The patient states his tremors are okay. OBJECTIVE: General appearance is appropriate for environment. Orientation alert to person and place and disoriented to time. His speech is soft, low tone, low volume. His associations are loose. His eye contact was good. His insight is impaired. His thought and concentration is distracted. His mood is depressed and anxious. Affect is flat narrow in range. No tremors were noted in his hands, bilateral. His memory is poor for both recent and remote events. His anxiety is moderate. Memory is poor for remote events. The patient does not appear to be attending to any visual or auditory hallucinations. ASSESSMENT: No change in previous diagnosis. PLAN: We will continue with his current medications and therapies. We will continue to monitor him for his medication tolerance to change in Geodon dose. We will continue to promote his safety. Monitor him for hallucinations and agitation and any abnormal movements and prepare for discharge. Dictated By: Paris Kearns APN I have interviewed/examined the above patient and agree with these documented findings. TRANSINT:[id number] Voice Confirmation ID: [id number] DOCUMENT ID: [id number] SANTOS ZULUAGA MD at 1443 at 1529 CC: [id number] DICTATION DATE: 12/28/19 1402 [employer] FIELD COORDINATOR: 12/28/19 2205 ADM IN [facility] [address] [place] [address]
[2019-12-29 20:00] VITALS: BP 145/78
--- NOTE | 2019-12-30 02:49 | NUR ---
B)RECEIVED PATIENT SITTING IN THE DAYROOM. CONFUSED AND DISORIENTED. ABLE TO TELL STAFF WHEN HE NEEDS TO GO TO THE BATHROOM. PATIENT DOES NOT HELP WITH TRANSFERS AND CARE HE DID ON ADMISSION. APPEARS MORE ALERT TODAY RATHER THAN STARRING BLANKLY. I)ADMINISTER MEDS AND MONITOR COMPLIANCE. REORIENT NEEDED. R)MED COMPLIANT. POOR REORIENTATION DUE TO IMPAIRED ABILITY TO COMPREHEND, PROCESS AND RETAIN INFORMATION. P)CONTINUE POC AND PROVIDE SAFE ENVIRONMENT.
[2019-12-30 08:44] VITALS: BP 119/71
--- NOTE | 2019-12-30 09:03 | PN ---
PATIENT:RIMA LANIER MEDICAL RECORD: [id number] LOCATION:[facility] ADMISSION DATE: 12/14/19 PROGRESS NOTE DATE OF SERVICE: 12/29/2019 SUBJECTIVE: The patient's case was discussed with staff. Staff reports that he has decreased in his ambulation that he has increase in difficulty in transferring and continues to stare blankly. OBJECTIVE: His general appearance is appropriate for his environment. His orientation is alert to person and place, disoriented to time and situation. His speech is soft, low tone, low volume. His associations are loose. His eye contact is fair. His insight is impaired. His thought and concentration is blocking. His mood is depressed and anxious. His affect is flat, blunt narrow in range. No tremors were noted in his hands bilaterally. His memory is poor for both recent and remote events. His anxiety is moderate. The patient does not appear to actively be attending to any visual or auditory hallucinations. ASSESSMENT: No change in previous diagnosis. PLAN: The patient did continue his Geodon. We will monitor for change and movements and hallucinations and we will continue to promote his safety and strive to stabilize his mood and thought and prepare him for discharge. Dictated By: Paris Kearns APN I have interviewed/examined the above patient and agree with these documented findings. TRANSINT:[id number] Voice Confirmation ID: [id number] DOCUMENT ID: [id number] SANTOS ZULUAGA MD at 1443 at 0903 CC: [id number] DICTATION DATE: 12/29/19 1527 COMPUTER PROGRAMMER CHIEF: 12/29/19 2240 ADM IN [place] [id number] [place] [address]
--- NOTE | 2019-12-30 19:32 | NUR ---
RECEIVED IN DAYROOM. SITTING IN A RECLINER WITH PEERS AT HIS SIDE. CALM AND COOPERATIVE WITH CARE AND ASSESSMENT. NO SIGNS OF HALLUCINATIONS. NOT YELLING OUT. REDIRECT AND REORIENT NEEDED. SITTING CALMLY AT NURSES STATION AT THIS TIME. CONTINUE PLAN OF CARE
[2019-12-30 20:00] VITALS: BP 134/77
[2019-12-31 08:44] VITALS: BP 138/80
--- NOTE | 2019-12-31 14:43 | PN ---
PATIENT:RIMA LANIER MEDICAL RECORD: [id number] LOCATION:[facility] ADMISSION DATE: 12/14/19 PROGRESS NOTE DATE OF SERVICE: 12/27/2019 SUBJECTIVE: The patient's case was discussed with staff. He has no new complaint. OBJECTIVE: The patient denies intent to harm himself or others. He is tolerating his medicines well. ASSESSMENT: Dementia. PLAN: Current medicines and therapies have been reviewed. Long-term prognosis is guarded. I am going to reduce his Geodon slightly and we will monitor him for clinical changes associated with doing so. TRANSINT:[id number] Voice Confirmation ID: [id number] DOCUMENT ID: [id number] SANTOS ZULUAGA MD at 1443 CC: [id number] DICTATION DATE: 12/27/19 1621 HIGH SCHOOL FOREIGN LANGUAGE TUTOR: 12/27/19 1630 ADM IN [place] [id number] [place] [id number]
--- NOTE | 2019-12-31 14:44 | PN ---
PATIENT:RIMA LANIER MEDICAL RECORD: [id number] LOCATION:[facility] ADMISSION DATE: 12/14/19 PROGRESS NOTE DATE OF SERVICE: 12/30/2019 SUBJECTIVE: The patient's case was discussed with staff. Staff reports that he is still not weightbearing. The patient did sleep 7.75 hours. He did eat dinner and this morning was eating breakfast and was first seen. OBJECTIVE: His general appearance is appropriate for his environment. He is alert to person and place, disoriented to time and situation. His speech is soft, low tone, low volume. His associations are loose. His eye contact is fair. His insight is impaired. His thought and concentration is blocking. His mood is depressed and anxious. His affect is flat, blunt, narrow in range. No tremors were noted in his hands bilaterally. His memory is poor for both recent and remote events. His anxiety is mild. The patient does not appear to actively attending to any visual or auditory external stimuli. ASSESSMENT: No change in previous diagnosis. PLAN: We will continue to monitor the patient's tolerance to medication changes. Continue to monitor for his change in movements and hallucinations and continue to promote his safety and strive to stabilize his mood and thought and prepare her for discharge. Dictated By: Paris Kearns APN I have interviewed/examined the above patient and agree with these documented findings. TRANSINT:[id number] Voice Confirmation ID: [id number] DOCUMENT ID: [id number] SANTOS ZULUAGA MD at 1444 CC: [id number] DICTATION DATE: 12/30/19 09 BOOM OPERATOR: 12/30/19 1652 ADM IN [place] [id number] [place] [address]
--- NOTE | 2019-12-31 19:14 | NUR ---
RECEIVED IN DAYROOM. SITTING IN A RECLINER WITH PEERS AT HIS SIDE. CALM AND COOPERATIVE WITH CARE AND ASSESSMENT. NO SIGNS OF HALLUCINATIONS. NOT YELLING OUT. REDIRECT AND REORIENT NEEDED. RESTING QUIETLY AT THIS TIME. CONTINUE PLAN OF CARE.
[2019-12-31 20:25] VITALS: BP 129/72
[2020-01-01 08:15] VITALS: BP 124/80
--- NOTE | 2020-01-01 12:42 | PN ---
PATIENT:RIMA LANIER MEDICAL RECORD: [id number] LOCATION:[facility] ADMISSION DATE: 12/14/19 PROGRESS NOTE DATE OF SERVICE: 12/31/2019 SUBJECTIVE: The patient's case was discussed with staff. He has no new complaint. OBJECTIVE: The patient is not having any psychotic symptoms. His insight is limited. ASSESSMENT: Parkinson's-related dementia. PLAN: The patient showing no tremor, but he does have some cogwheeling rigidity. I am going to increase the dose of his Sinemet. TRANSINT:[id number] Voice Confirmation ID: [id number] DOCUMENT ID: [id number] SANTOS ZULUAGA MD at 1242 CC: [id number] DICTATION DATE: 12/31/19 1559 HOME VISITOR: 12/31/19 2112 ADM IN [address] [address]
[2020-01-01] MEDS ORDERED: LISINOPRIL5 MG PO (15:12)
[2020-01-01] MEDS ORDERED: ACETAMINOPHEN500 M1 PO (15:12)
[2020-01-01] MEDS ORDERED: REMOVE PATCH TD (15:15)
[2020-01-01] MEDS ORDERED: LIDODERM 5 %1 PATCH TRANSDERM (15:15)
[2020-01-01] MEDS ORDERED: Senokot TAB PO (15:15)
[2020-01-01] MEDS ORDERED: Megace ES [CHEMO] PO (15:15)
[2020-01-01] MEDS ORDERED: Vitamin D PO (15:15)
--- NOTE | 2020-01-01 19:37 | NUR ---
RECEIVED IN DAYROOM. SITTING IN A CHAIR WITH PEERS AT HIS SIT. CALM AND COOPERATIVE WITH CARE AND ASSESSMENT. NO SIGNS OF HALLUCINATIONS. NOT YELLING OUT. REDIRECT AND REORIENT NEEDED. CONTINUES TO SIT CALMLY. CONTINUE PLAN OF CARE.
[2020-01-01 20:40] VITALS: BP 118/68
--- NOTE | 2020-01-02 07:41 | NUR ---
MERIPLEX APPPLIED TO BUTTOCKS DUE TO SHEARING. WILL MONITOR.
[2020-01-02 08:54] VITALS: BP 126/75
--- NOTE | 2020-01-02 10:33 | NUR ---
SITTING IN CHAIR WITH EYES OPEN. NO C/O PAIN. NO S/S OF ACUTE DISTRESS NOTED. DENIES ANY NEEDS AT THIS TIME. WILL CONTINUE TO MONITOR.
--- NOTE | 2020-01-02 11:18 | NUR ---
SPOKE WITH [facility] IN [facility] ABOUT PT DISCHARGING. PAPERWORK FAXED TO PARMJIT AND DR. DANIELS OFFICE WITH FOLLOW UP APPT SET. PT REQUIRED 2X PEOPLE TO ASSIST WITH GETTING INTO TRANSPORT CAR. NURSE WENT OVER PT APPT AND CREAM TO PUT ON HIS SHEAR AREA. NOTIFIED HER OF NURSE CALLING [facility]. NURSE CALLED ALL MEDICATIONS INTO PHARMACY AND NOTIFIED . PT WAS IN A GOOD MOOD TO LEAVE. PAPERWORK FAXED TO DOCTOR OFFICE AND [facility]. PAPERWORK SENT WITH .
--- NOTE | 2020-01-02 14:56 | PN ---
PATIENT:RIMA LANIER MEDICAL RECORD: [id number] LOCATION:[facility] ADMISSION DATE: 12/14/19 PROGRESS NOTE DATE OF SERVICE: 01/01/2020 SUBJECTIVE: The patient's case was discussed with staff. He has no new complaint. OBJECTIVE: The patient is eating and sleeping reasonably well. He is tolerating his medicines reasonably well. He has not been aggressive with staff and has had no hallucinations for several days. ASSESSMENT: Dementia. PLAN: The patient will be transitioned out of the hospital and back to the intermediate tomorrow. His long-term prognosis is guarded. TRANSINT:[id number] Voice Confirmation ID: [id number] DOCUMENT ID: [id number] SANTOS ZULUAGA MD at 1456 CC: [id number] DICTATION DATE: 01/01/20 1510 MOBILE THERAPIST: 01/01/20 1721 DIS IN 01/02/20 [facility] [address] [place] [address]
--- NOTE | 2020-01-03 13:21 | DS ---
PATIENT:RIMA LANIER :47 MEDICAL RECORD: [id number] DISCHARGE SUMMARY ADMISSION DATE: 12/14/19 DISCHARGE DATE: 01/02/20 IDENTIFYING DATA: The patient is 74 years old and he was referred to us by rehab where he had been hospitalized after hip fracture. CHIEF COMPLAINT: Hallucinations, yelling, refusing medication. HISTORY OF PRESENT ILLNESS: The patient has a known history of Parkinson disease and Parkinson's related dementia. He had been hallucinating, agitated, irritable and cooperative with care on the rehab facility. They were no longer able to manage him. The patient was subsequently referred to us to address these behaviors. HOSPITAL COURSE: The patient was admitted to the hospital and fully evaluated from both a medical, psychological, and social standpoint. He was treated with both memory enhancing and mood stabilizing medications. He showed improvement in his psychotic symptoms and agitation, but as one would expect no real change in his underlying dementia. He was subsequently deemed not to be an appropriate candidate for rehabilitative services and was referred to a fdc for long-term placement, but his at the last moment decided that she was going to take him home. This was very much against our recommendations as she is advanced in age and he requires a great deal of care and is only able to minimally assist in his care. DISCHARGE DIAGNOSES: AXIS I: Parkinson's related dementia. AXIS II: None. AXIS III: Status post hip fracture, hyperlipidemia, diabetes, hypertension, and diverticulosis. AXIS IV: Moderate. AXIS V: Global assessment of functioning is 30. PLAN: At the time of discharge, the patient was in good behavioral control and had no active thoughts of harming himself or others. His follow up will be with his primary care physician. The has been instructed to call us if she decides she cannot care for him and home health was ordered. TRANSINT:[id number] Voice Confirmation ID: [id number] DOCUMENT ID: [id number] SANTOS ZULUAGA MD at 1321 CC: [id number] DICTATION DATE: 01/02/20 1524 OPERATIONS MANAGER STATION: 01/02/20 2155 DIS IN 01/02/20 [place] [id number] [place] [address]
== END 2020-01-02 11:00 | disposition home health service (06) | DRG 57 ==
LOC: D.PSYCH 16:13
PROVIDERS: ADMIT Psychiatry & Neurology Psychiatry; ATTEND Psychiatry & Neurology Psychiatry
DX: G20 Parkinson's disease (principal); F02.81 Dementia in other diseases classified elsewhere, unspecified severity, with behavioral disturbance; N39.0 Urinary tract infection, site not specified; F41.1 Generalized anxiety disorder; I10 Essential (primary) hypertension; E11.9 Type 2 diabetes mellitus without complications; Z47.1 Aftercare following joint replacement surgery; Z96.642 Presence of left artificial hip joint; I25.10 Atherosclerotic heart disease of native coronary artery without angina pectoris; E78.5 Hyperlipidemia, unspecified; H40.9 Unspecified glaucoma; R26.9 Unspecified abnormalities of gait and mobility; E55.9 Vitamin D deficiency, unspecified; M17.12 Unilateral primary osteoarthritis, left knee; K59.00 Constipation, unspecified; N32.81 Overactive bladder; J30.9 Allergic rhinitis, unspecified; B96.1 Klebsiella pneumoniae [K. pneumoniae] as the cause of diseases classified elsewhere